=== PATIENT | male | born 1955 | race Two or more races ===

== ENCOUNTER → 2018-07-07 | Outpatient (CLI) | payer OTHER | LOC: CIMAGING 17:38 | PROVIDERS: ATTEND Internal Medicine Pulmonary Disease | DX: J98.4 Other disorders of lung (principal) | CPT/HCPCS: 71046-PO ==

== ENCOUNTER → 2018-07-17 | Outpatient (CLI) | payer OTHER ==
[~2018-07-17] MED LIST: IOPAMIDOL (ISOVUE-300) 100 ML BTL ONE
== END ==
LOC: CIMAGING 08:52
PROVIDERS: ATTEND Internal Medicine Pulmonary Disease
DX: R59.0 Localized enlarged lymph nodes (principal); J43.2 Centrilobular emphysema; I31.3 Pericardial effusion (noninflammatory); I25.10 Atherosclerotic heart disease of native coronary artery without angina pectoris
CPT/HCPCS: 71260-PO; Q9967

== ENCOUNTER 2018-07-21 07:55 | Day surgery (SDC) | payer OTHER ==
[2018-07-21] MEDS ORDERED: BUPIVACAINE 0.5% 30 ML SDV ONE (08:07)
[2018-07-21] MEDS ORDERED: ceFAZolin 2 GM/DEXTROSE 100 ML IV ONE (08:19)
[2018-07-21 09:20] LABS: PLATELET COUNT 489 10^3/uL (150-400)
--- NOTE | 2018-07-21 10:45 | PDHPUP ---
History & Physical Update H&P update statement: This history and physical update is based on an assessment of the patient which was completed after admission or registration (within 24 hours), but prior to the surgery/procedure. H&P update: H&P reviewed & patient examined, no change in patient's condition since H&P completed
[2018-07-21] MEDS ORDERED: MIDAZOLAM 2 MG/2 ML VIAL IVP ONE (10:53)
--- NOTE | 2018-07-21 10:53 | PDANEPAE ---
ANE Past Medical History - Cardiovascular History Hx Hypertension: No Hx Arrhythmias: No Hx Chest Pain: No Hx Coronary Artery / Peripheral Vascular Disease: No Hx CHF / Valvular Disease: No Hx Palpitations: No - Pulmonary History Hx COPD: No Hx Asthma/Reactive Airway Disease: No Hx Recent Upper Respiratory Infection: No Hx Oxygen in Use at Home: No Hx Sleep Apnea: No Sleep Apnea Screening Result - Last Documented: Negative Pulmonary History Comment: chronic cough - Neurologic History Hx Cerebrovascular Accident: No Hx Seizures: No Hx Dementia: No - Endocrine History Hx Diabetes: No - Renal History Hx Renal Disorders: No - Liver History Hx Hepatic Disorders: No - Neurological & Psychiatric Hx Hx Neurological and Psychiatric Disorders: No - Cancer History Hx Cancer: No - Congenital Disorder History Hx Congenital Disorders: No - GI History Hx Gastrointestinal Disorders: No - Other Health History Other Health History: full dentures - Chronic Pain History Chronic Pain: No - Surgical History Prior Surgeries: n/a ANE Review of Systems Review of Systems: - Exercise capacity METS (RN): 4 METS ANE Patient History - Allergies Allergies/Adverse Reactions: No Known Allergies Allergy (Verified 07/20/18 15:15) - Home Medications Home Medications: Cough Syrup HS 07/20/18 [Last Taken 07/20/18] Prednisone 07/21/18 [Last Taken 3 Days Ago ~07/18/18] - NPO status NPO Since - Liquids (Date): 07/20/18 NPO Since - Liquids (Time): 20:00 NPO Since - Solids (Date): 07/20/18 NPO Since - Solids (Time): 20:00 - Smoking Hx Smoking Status: Heavy smoker - Family Anes Hx Family Hx Anesthesia Complications: none ANE Labs/Vital Signs - Labs Result Diagrams: 07/21/18 09:00 07/20/18 09:00 - Vital Signs Blood Pressure: 127/78 Heart Rate: 107 Respiratory Rate: 16 O2 Sat (%): 92 Height: 175.26 cm Weight: 58.967 kg ANE Physical Exam - Airway Neck exam: FROM Mallampati Score: Class 2 Mouth exam: poor dentition - Pulmonary Pulmonary: no respiratory distress - Cardiovascular Cardiovascular: regular rate and rhythym - ASA Status ASA Status: II ANE Anesthesia Plan Anesthesia Plan: GA w LMA
[2018-07-21] MEDS ORDERED: MIDAZOLAM 2 MG/2 ML VIAL ONE (10:54)
[2018-07-21] MEDS ORDERED: PROPOFOL 200 MG/20 ML VIAL ONE (10:56)
[2018-07-21] MEDS ORDERED: fentaNYL 100 MCG/2 ML INJ ONE (10:56)
[2018-07-21] MEDS ORDERED: ALBUTEROL HFA ANES ONLY 200 PUFFS/8.5 GM MDI IH ONE (10:56)
[2018-07-21] MEDS ORDERED: ONDANSETRON 4 MG/2 ML VIAL ONE (10:57)
[2018-07-21] MEDS ORDERED: LIDOCAINE 2% 100 MG/5 ML SYR ONE (10:58)
[2018-07-21] MEDS ORDERED: KETOROLAC 30 MG/1 ML SDV ONE (11:15)
[2018-07-21] MEDS ORDERED: NALOXONE HCL 0.4 MG/ML INJ IVP PRN (11:24)
[2018-07-21] MEDS ORDERED: HYDROCODONE/APAP 5/325 TAB PO PRN (11:24)
[2018-07-21] MEDS ORDERED: ALBUTEROL 3 ML DEYVIAL IH PRN (11:24)
[2018-07-21] MEDS ORDERED: fentaNYL 100 MCG/2 ML INJ IVP PRN (11:24)
[2018-07-21] MEDS ORDERED: ONDANSETRON 4 MG/2 ML VIAL IVP PRN (11:24)
--- NOTE | 2018-07-21 12:05 | POSTANESTH ---
Post Anesthetic Evaluation Cardiovascular Status: Similar to Pre-Op Cond Respiratory Status: Similar to Pre-op Cond. Level of Consciousness/Mental Status: Moderately Sleepy Pain Control: Adequate, Prn Tx Ordered Nausea/Vomiting Control: Adequate, Prn Tx Ordered Complications Possibly Related to Anesthesia: None Noted
[2018-07-21] MEDS ORDERED: HYDROCODONE/APAP 5/325 TAB ONE (12:36)
[2018-07-21 12:48] VITALS: BP 112/71
--- NOTE | 2018-07-21 16:20 | POSTOPPROG ---
Post Op Note Date of Operation: 07/21/18 Surgeon: Gregg Lazar Plane Tender: Gabbi Anesthesiologist: Christian Anesthesia: GET(General Endotracheal) Pre-op Diagnosis: Supraclavicular lymphadenopathy Post-op Diagnosis: same Indication: same, diagnosis Procedure: Excisional biopsy R supraclavicular LNs x3 Findings: Firm LNs, consistent with lymphoma, likely Hodgkin's Inf/Abcess present in the surg proc area at time of surgery?: No Depth: Superfical (Skin SQ) EBL: Minimal Specimen(s): R supraclavicular LNs x3 - frozen
--- NOTE | 2018-07-23 17:27 | GOP ---
[f rep st] OPERATIVE REPORT DATE OF OPERATION: SURGEON: Gregg Lazar MD SOFTWARE DEVELOPER MID LEVEL: Ashley Seo, nurse practitioner. ANESTHESIOLOGIST: Dr. Karthikeyan Plaza. PREOPERATIVE DIAGNOSIS: Mediastinal adenopathy. POSTOPERATIVE DIAGNOSIS: Probable lymphoma, possible Hodgkin's. PROCEDURE PERFORMED: Deep cervical node dissection. FINDINGS: The patient has multiple nodes in the right supraclavicular space filling up the scalene f at pad. SPECIMENS: Sent to Pathology and returned as probable lymphoma suspicious for Hodgkin's. DESCRIPTION OF PROCEDURE: The patient was taken to the operating room where he received satisfactory general endotracheal anesthesia by Dr. Plaza. He was placed in the supine position, prepped and draped in usual sterile fashion. A transverse incision was made in the right supraclavicular space. Dissection extended down through the subcutaneous tissue and the platysma. The cervical fascia was incised. Exploration of the scalene area was then done with removal of multiple enlarged nodes which were essentially individual nodes and not really matted together much. Four nodes were removed. He mostasis was assured with electrocautery and/or hemoclips and the neurovascular bundles were all care fully spared from injury. Hemostasis was assured. The wound was irrigated. Platysma and subcutaneo us tissue were closed with 3-0 Vicryl and the skin with a 4-0 Monocryl subcuticular stitch. The skin was further infiltrated with 0.5% Marcaine. He tolerated the procedure well, was taken to the [facility] room in good condition. There were no complications. /[id number]/MODL
== END 2018-07-21 13:05 | disposition home or self-care (01) ==
LOC: FSGY 07:55
PROVIDERS: ATTEND Surgery
PROC: 07B10ZX Excision of Right Neck Lymphatic, Open Approach, Diagnostic (ICD-10-PCS; principal; 2018-07-21 09:30)
DX: C81.91 Hodgkin lymphoma, unspecified, lymph nodes of head, face, and neck (principal); R59.0 Localized enlarged lymph nodes; R05 Cough
CPT/HCPCS: 88184-90; 88185-91; J0690; J1885; J2001; J2250; J2405; J2704; J3010

== ENCOUNTER 2018-08-10 10:32 | Day surgery (SDC) | payer OTHER ==
[2018-08-10] MEDS ORDERED: ceFAZolin 2 GM/DEXTROSE 100 ML IV ONE (10:42)
[2018-08-10] MEDS ORDERED: LR 1,000 ML IV ONE (10:43)
[2018-08-10] MEDS ORDERED: BUPIVACAINE 0.5% 30 ML SDV ONE (11:47)
[2018-08-10] MEDS ORDERED: MIDAZOLAM 2 MG/2 ML VIAL ONE (12:02)
[2018-08-10] MEDS ORDERED: MIDAZOLAM 2 MG/2 ML VIAL IVP ONE (12:05)
--- NOTE | 2018-08-10 12:05 | PDANEPAE ---
ANE History of Present Illness Hodgkin lymphoma, here for a port for chemotherapy ANE Past Medical History - Cardiovascular History Hx Hypertension: No Hx Arrhythmias: No Hx Chest Pain: No Hx Coronary Artery / Peripheral Vascular Disease: No Hx CHF / Valvular Disease: No Hx Palpitations: No - Pulmonary History Hx COPD: No Hx Asthma/Reactive Airway Disease: No Hx Recent Upper Respiratory Infection: No Hx Oxygen in Use at Home: No Hx Sleep Apnea: No Pulmonary History Comment: chronic cough - Neurologic History Hx Cerebrovascular Accident: No Hx Seizures: No Hx Dementia: No - Endocrine History Hx Diabetes: No - Renal History Hx Renal Disorders: No - Liver History Hx Hepatic Disorders: No - Neurological & Psychiatric Hx Hx Neurological and Psychiatric Disorders: No - Cancer History Hx Cancer: No - Congenital Disorder History Hx Congenital Disorders: No - GI History Hx Gastrointestinal Disorders: No - Other Health History Other Health History: full dentures - Chronic Pain History Chronic Pain: No - Surgical History Prior Surgeries: n/a ANE Review of Systems Review of Systems: - Exercise capacity METS (RN): 1 METS ANE Patient History - Allergies Allergies/Adverse Reactions: No Known Allergies Allergy (Verified 07/20/18 15:15) - Home Medications Home Medications: Cough Syrup HS 07/20/18 [Last Taken 08/08/18] Flomax 08/10/18 [Last Taken 08/09/18] - NPO status NPO Since - Liquids (Date): 08/09/18 NPO Since - Liquids (Time): 19:00 NPO Since - Solids (Date): 08/09/18 NPO Since - Solids (Time): 19:00 - Smoking Hx Smoking Status: Heavy smoker - Family Anes Hx Family Hx Anesthesia Complications: none ANE Labs/Vital Signs - Labs Result Diagrams: 08/10/18 11:07 - Vital Signs Blood Pressure: 117/75 Heart Rate: 111 Respiratory Rate: 16 O2 Sat (%): 86 Height: 175.26 cm Weight: 59.874 kg ANE Physical Exam - Airway Neck exam: FROM Mallampati Score: Class 1 Mouth exam: dentures - Pulmonary Pulmonary: no respiratory distress, no rales or rhonchi - Cardiovascular Cardiovascular: regular rate and rhythym, no murmur, rub, or gallop - ASA Status ASA Status: II ANE Anesthesia Plan Anesthesia Plan: GA w LMA Total IV Anesthesia: No
[2018-08-10] MEDS ORDERED: ONDANSETRON 4 MG/2 ML VIAL ONE (12:10)
[2018-08-10] MEDS ORDERED: PROPOFOL 200 MG/20 ML VIAL ONE (12:10)
[2018-08-10] MEDS ORDERED: fentaNYL 100 MCG/2 ML INJ ONE (12:10)
[2018-08-10] MEDS ORDERED: LIDOCAINE 2% 100 MG/5 ML SYR ONE (12:10)
[2018-08-10] MEDS ORDERED: DEXAMETHASONE 4 MG/ML VIAL ONE (12:10)
[2018-08-10] MEDS ORDERED: NALOXONE HCL 0.4 MG/ML INJ IVP PRN (12:54)
[2018-08-10] MEDS ORDERED: HYDROCODONE/APAP 5/325 TAB PO PRN (12:54)
[2018-08-10] MEDS ORDERED: MEPERIDINE 25 MG/0.5 ML AMP IVP PRN (12:54)
[2018-08-10] MEDS ORDERED: ONDANSETRON 4 MG/2 ML VIAL IVP PRN (12:54)
[2018-08-10] MEDS ORDERED: LR 500 ML IV PRN (12:54)
[2018-08-10] MEDS ORDERED: fentaNYL 100 MCG/2 ML INJ IVP PRN (12:54)
[2018-08-10] MEDS ORDERED: HYDROmorphONE/DILAUDID 2 MG/ML INJ IVP PRN (12:54)
--- NOTE | 2018-08-10 13:01 | POSTOPPROG ---
Post Op Note Date of Operation: 08/10/18 Surgeon: Gregg Lazar Anesthesiologist: JANNET Anesthesia: GET(General Endotracheal) Pre-op Diagnosis: HODGKIN'S Post-op Diagnosis: SAME Indication: CHEMO ACCESS Procedure: LEFT SUBCLAVIAN PORT WITH FLUOROSCOPIC GUIDANCE Findings: GOOD POSITION AND FLOW Inf/Abcess present in the surg proc area at time of surgery?: No Depth: Deep Incisional (Fascial) EBL: Minimal Complications: NONE Bowel Protocol: N/A Clean Closure Performed: N/A Specimen(s): NONE
--- NOTE | 2018-08-10 13:54 | POSTANESTH ---
Post Anesthetic Evaluation Cardiovascular Status: Normal, Stable Respiratory Status: Normal, Stable Level of Consciousness/Mental Status: Can Participate in Eval, Alert and Oriented Pain Control: Adequate, Prn Tx Ordered Nausea/Vomiting Control: Adequate, Prn Tx Ordered Complications Possibly Related to Anesthesia: None Noted
--- NOTE | 2018-08-10 15:20 | PDHOMEO2F ---
Home Oxygen Face to Face Home Orders: I certify that a physician or a nurse practitioner or physician's psychiatric assistant has had a [id number] encounter with this patient on the date of this order due to the diagnosis listed, which relates to the primary reason the patient requires home oxygen. Alternative treatments have been tried, or considered, and deemed ineffective. It is anticipated that supplemental oxygen will result in improvement with treatment. Home oxygen qualifying diagnosis: Hypoxia SpO2 on room air (%): 82% Frequency of home oxygen needed: continuous Home oxygen liters per minute: 2 Home oxygen delivery device: nasal cannula Concentrator: Yes E-tanks for mobility and back up: Yes If ordering portable O2, is the patient mobile in the home?: Yes I certify that, based on these findings, the home oxygen is medically necessary for this patient for the following length of time. Length of time home oxygen needed: 1 month
--- NOTE | 2018-08-10 15:48 | PDGENHP ---
History & Physical Chief Complaint: HODGKIN'S LYMPHOMA History of Present Illness: 63-YEAR-OLD MALE WITH DIFFUSE ADENOPATHY BUT BIOPSY- PROVEN HODGKIN'S LYMPHOMA IN THE NECK AND MEDIASTINUM. HE IS HERE FOR A PORT PLACEMENT. RISKS AND OPTIONS BEEN FULLY DISCUSSED AND HE WISHES TO PROCEED. HE IS A HEAVY SMOKER. HE HAS ALSO LOST WEIGHT OVER THE LAST 2 MONTHS FROM ONGOING COUGHING AND PROBLEMS RELATED TO THE LYMPHOMA Pertinent Past, Social, Family History: PAST HISTORY IS NEGATIVE FOR ANY MAJOR MEDICAL PROBLEMS EXCEPT FOR THE LYMPH NODE BIOPSY. ALLERGIES NONE. MEDICATIONS NONE. SOCIAL HISTORY REVEALS HE IS AND SMOKES HALF PACK PER DAY. REVIEW OF SYSTEMS IS NEGATIVE ON A 10 POINT REVIEW EXCEPT RELATED TO THE HPI. FAMILY HISTORY IS NONCONTRIBUTORY Relevant Physical Exam: GENERAL 63-YEAR-OLD MALE IN NO ACUTE DISTRESS, AFEBRILE. HEENT DIFFUSE SUPRACLAVICULAR ADENOPATHY ON THE RIGHT SIDE, PERRLA, NONICTERIC. NECK SUPPLE FULL RANGE OF MOTION NO BRUITS. CHEST CLEAR WITH NO WHEEZING SLIGHTLY DECREASED BREATH SOUNDS DIFFUSELY. TRACHEA MIDLINE. COR REGULAR RHYTHM WITHOUT MURMURS. ABDOMEN SOFT WITHOUT MASSES ORGANOMEGALY. EXTREMITIES FULL RANGE OF MOTION FULL PULSES. NEURO EXAM PHYSIOLOGIC. PSYCH EXAM ALERT ORIENTED AND COOPERATIVE Cardiorespiratory Assessment: IMPRESSION: HODGKIN'S LYMPHOMA. PLAN PORT PLACEMENT LEFT SUBCLAVIAN. RISKS AND OPTIONS FULLY DISCUSSED AND HE WISHED TO PROCEED
--- NOTE | 2018-08-10 16:14 | GOP ---
[f rep st] OPERATIVE REPORT DATE OF OPERATION: 08/10/2018 SURGEON: Gregg Lazar MD PREOPERATIVE DIAGNOSIS: Hodgkin lymphoma. POSTOPERATIVE DIAGNOSIS: Hodgkin lymphoma. PROCEDURE PERFORMED: Left subclavian port placement with fluoroscopic guidance. FINDINGS: The patient was found to have good flow and good position. DESCRIPTION OF PROCEDURE: The patient taken to the operating room, where he received satisfactory ge neral endotracheal anesthesia by Dr. Woodruff. He was placed in Trendelenburg position, prepped and arnoldo ped in the usual sterile fashion. Using 0.5% Marcaine local infiltration, a single stick was made in the left subclavian vein. Guidewire was introduced. Position was confirmed with fluoroscopy. A ascencio bcu pocket was made in the 2nd intercostal space, again using 0.5% Marcaine local infiltration. Port tubing was passed from that pocket to the subclavian insertion site. It was trimmed to the appropri ate length using fluoroscopic guidance and introduced via the introducer sheath and dilator system. Good backflow was achieved. The catheter was flushed with heparin and saline. The port was secured to the fascia with 3-0 Vicryl. Pocket was closed with 3-0 Vicryl subcu and 4-0 Prolene subcuticular stitch for the skin, and entrance site was closed with Prolene mattress suture. All wounds were infi ltrated with Marcaine, and the wounds were dressed. He tolerated the procedure well, was taken to recovery room in good condition. There was no junior sales assistant. Anesthesia was by Dr. Woodruff. /[id number]/MODL
[2018-08-10 16:58] VITALS: BP 117/68
== END 2018-08-10 17:37 | disposition home or self-care (01) ==
LOC: FSGY 10:32
PROVIDERS: ATTEND Surgery
DX: C81.91 Hodgkin lymphoma, unspecified, lymph nodes of head, face, and neck (principal); C81.92 Hodgkin lymphoma, unspecified, intrathoracic lymph nodes; F17.210 Nicotine dependence, cigarettes, uncomplicated
CPT/HCPCS: C1788; J0690; J1100; J1642; J2001; J2250; J2405; J2704; J3010